=== PATIENT | female | born 1965 | race Caucasian/White ===

== ENCOUNTER → 2021-04-02 | Outpatient (CLI) | payer OTHER ==
[~2021-04-02] MED LIST: CYMB1CAP PO; FERR5MLUD PO; FLEX10TA2 PO; LISI5TAB PO; Lisinopril/HCTZ PO; MAXA10TA20 PO; NEXI1CAP3 PO; OXYC-208 PO; OXYC-274 PO; OXYC1TAB23 PO
--- NOTE | 2021-04-03 13:51 | REP ---
INDICATION: SCREEN MAMMO. COMPARISON: 09/07/2013, 03/09/2012. TECHNIQUE: MLO and CC views bilateral breasts with tomosynthesis. FINDINGS: Scattered fibroglandular tissue is again noted with progressive fatty replacement compared to the prior study. No new breast mass or architectural distortion is seen. No suspicious clusters of microcalcifications are seen. There are calcifications of fat necrosis in the right breast. There is bilateral axillary adenopathy, with multiple enlarged axillary lymph nodes present. Reportedly the patient was diagnosed with leukemia 2 weeks ago. The Volpara volumetric breast density pattern is B. IMPRESSION: BIRADS/ACR category 2, benign mammogram, no suspicious mass or clusters of microcalcifications bilaterally. There is bilateral axillary adenopathy with a known recent diagnosis of leukemia. This patient's Tyrer-Cuzick lifetime breast cancer risk assessment score is 7.2%. This mammogram was interpreted with the aid of an FDA-approved computer-aided detection system. The patient states she had a clinical breast exam in over 1 year ago. The patient letter being requested is M1. RECOMMENDATION: Repeat screening mammography recommended 1 year (for women over 40). <Electronically signed by Jose Juan Paz > 04/03/21 [id number]
== END ==
LOC: M WHC 09:13
PROVIDERS: ATTEND Nurse Practitioner Primary Care
DX: Z12.31 Encounter for screening mammogram for malignant neoplasm of breast (principal)

== ENCOUNTER → 2021-04-18 | Outpatient (CLI) | payer OTHER ==
[~2021-04-18] MED LIST changes: +PROHANCE 279.3MG/ML 15ML VIAL As Ordered ONE
--- NOTE | 2021-04-18 14:50 | REP ---
INDICATION: MALIGNANT NEOPLASM OF BREAST. COMPARISON: Mammogram 04/02/2021. TECHNIQUE: Three Em MRI imaging was performed with a dedicated breast coil. Axial, coronal, and sagittal T1 and T2 weighted scans were obtained with and without fat saturation in the usual fashion. The study includes dynamically acquired post gadolinium-enhanced imaging with image subtraction. Maximum intensity projection and multi planar reformation imaging is included as well. This study is interpreted with the aid of TargetXD, an FDA approved computer aided detection (CAD) software program, on a dedicated breast MRI workstation. The gadolinium enhancement dose is 15 mL of intravenous ProHance. FINDINGS: There is moderate fibroglandular tissue present. No significant cystic change is seen in either breast. There is an area of calcified fat necrosis is at the 12 o'clock position of the right breast. This measures about 2.6 cm in diameter. There is bilateral axillary lymphadenopathy, with multiple enlarged lymph nodes present. Largest on the right measures approximately 2.9 x 2.1 cm and the largest on the left measures approximately 2.6 x 2.2 cm. There is mild background parenchymal enhancement. There is no suspicious enhancing mass or morphologic abnormality. IMPRESSION: BI-RADS category 2, benign breast MRI. No suspicious enhancing mass or morphologic abnormality. There is bilateral axillary adenopathy in this patient with a recent diagnosis of leukemia. <Electronically signed by Jose Juan Paz > 04/18/21 [id number]
== END ==
LOC: M RAD 08:41
PROVIDERS: ATTEND Nurse Practitioner Primary Care
DX: Z12.31 Encounter for screening mammogram for malignant neoplasm of breast (principal)

== ENCOUNTER → 2021-07-31 | Outpatient (CLI) | payer OTHER ==
[~2021-07-31] MED LIST changes: -PROHANCE 279.3MG/ML 15ML VIAL As Ordered ONE
== END ==
LOC: M RAD 08:47
PROVIDERS: ATTEND Internal Medicine Pulmonary Disease
DX: Z87.891 Personal history of nicotine dependence (principal)

== ENCOUNTER → 2021-11-08 | Outpatient (CLI) | payer OTHER | LOC: M WHC 07:46 | PROVIDERS: ATTEND Emergency Medicine | DX: Z12.31 Encounter for screening mammogram for malignant neoplasm of breast (principal) | CPT/HCPCS: 77065; G0279 ==

== ENCOUNTER → 2021-11-29 | Outpatient (CLI) | payer OTHER | LOC: M WUC 09:38 | PROVIDERS: ATTEND Physician Assistant | DX: R07.1 Chest pain on breathing (principal) ==

== ENCOUNTER 2022-01-19 09:02 | Emergency (ER) | payer OTHER ==
[~2022-01-19] VITALS: Ht 162.6 cm; Wt 72.7 kg
[2022-01-19] MEDS ORDERED: oxyCODONE 5MG TAB PO ONE (10:50)
[2022-01-19 11:44] VITALS: BP 109/63
== END 2022-01-19 11:52 | disposition home or self-care (01) ==
LOC: M ED 09:02
DX: S42.001A Fracture of unspecified part of right clavicle, initial encounter for closed fracture (principal); S22.31XA Fracture of one rib, right side, initial encounter for closed fracture; S43.121A Dislocation of right acromioclavicular joint, 100%-200% displacement, initial encounter; W10.8XXA Fall (on) (from) other stairs and steps, initial encounter; J45.909 Unspecified asthma, uncomplicated; I10 Essential (primary) hypertension; E78.5 Hyperlipidemia, unspecified; K21.9 Gastro-esophageal reflux disease without esophagitis; J44.9 Chronic obstructive pulmonary disease, unspecified; Z98.84 Bariatric surgery status; Z88.6 Allergy status to analgesic agent; Y92.009 Unspecified place in unspecified non-institutional (private) residence as the place of occurrence of the external cause; Y93.K1 Activity, walking an animal; Y99.9 Unspecified external cause status; Z79.811 Long term (current) use of aromatase inhibitors; Z79.83 Long term (current) use of bisphosphonates; Z79.899 Other long term (current) drug therapy

== ENCOUNTER 2022-06-29 15:45 | Emergency (ER) | payer OTHER ==
[~2022-06-29] VITALS: Ht 160 cm; Wt 158.0 kg
[2022-06-29] MEDS ORDERED: NS 1,000 ML IV ONE (16:10)
[2022-06-29 16:48] LABS: BASO % 0.2 % (0.0-1.0); EOS % 0.2 % (0.0-3.0); HEMATOCRIT 33.9 % (36.0-47.0); HEMOGLOBIN 11.4 g/dl (12.0-15.5); LYMPH # 0.2 10^3/uL (1.5-5.0); LYMPH % 0.9 % (24.0-44.0); MEAN CORPUSCULAR HEMOGLOBIN 35.1 pg (27.0-33.0); MEAN CORPUSCULAR HGB CONC 33.6 g/dl (32.0-36.5); MEAN CORPUSCULAR VOLUME 104.3 fl (80.0-96.0); MONO # 1.1 10^3/uL (0.0-0.8); MONO % 5.8 % (2.0-8.0); NEUTROPHILS # 17.9 10^3/uL (1.5-8.5); NEUTROPHILS % 92.3 % (36.0-66.0); PLATELET COUNT, AUTOMATED 209 10^3/uL (150-450); RED BLOOD COUNT 3.25 10^6/uL (4.00-5.40); WHITE BLOOD COUNT 19.4 10^3/uL (4.0-10.0)
[2022-06-29] MEDS ORDERED: BEND25VI IV (16:48)
[2022-06-29] MEDS ORDERED: RITU10VI IV (16:48)
[2022-06-29 17:23] LABS: RSV AMPLIFICATION NEGATIVE (NEGATIVE)
[2022-06-29 17:28] LABS: ALBUMIN 3.4 G/DL (3.2-5.2); BILIRUBIN,DIRECT 0.2 MG/DL (<0.4); BILIRUBIN,TOTAL 0.4 MG/DL (0.3-1.2); TOTAL PROTEIN 5.8 G/DL (5.7-8.2)
[2022-06-29 18:08] LABS: BASO % 0.2 % (0.0-1.0); EOS % 0.1 % (0.0-3.0); HEMATOCRIT 30.5 % (36.0-47.0); LYMPH # 0.2 10^3/uL (1.5-5.0); LYMPH % 1.3 % (24.0-44.0); MEAN CORPUSCULAR HEMOGLOBIN 34.6 pg (27.0-33.0); MEAN CORPUSCULAR HGB CONC 32.8 g/dl (32.0-36.5); MEAN CORPUSCULAR VOLUME 105.5 fl (80.0-96.0); MONO # 0.6 10^3/uL (0.0-0.8); MONO % 4.3 % (2.0-8.0); NEUTROPHILS # 12.3 10^3/uL (1.5-8.5); NEUTROPHILS % 93.7 % (36.0-66.0); PLATELET COUNT, AUTOMATED 167 10^3/uL (150-450); RED BLOOD COUNT 2.89 10^6/uL (4.00-5.40); WHITE BLOOD COUNT 13.1 10^3/uL (4.0-10.0)
[2022-06-29] MEDS ORDERED: ONDA4TAB6 PO (18:24)
[2022-06-29 18:30] VITALS: BP 110/60
[2022-06-29] MEDS ORDERED: SODIUM CHLORIDE 0.9% INJ 10 ML SYR IV PRN (18:40)
== END 2022-06-29 19:01 | disposition home or self-care (01) ==
LOC: M ED 15:45 → EDBD 15:45 → M ED 19:01
DX: R11.10 Vomiting, unspecified (principal); R19.7 Diarrhea, unspecified; I10 Essential (primary) hypertension; E78.5 Hyperlipidemia, unspecified; J44.9 Chronic obstructive pulmonary disease, unspecified; F10.10 Alcohol abuse, uncomplicated; Z88.6 Allergy status to analgesic agent; Z79.811 Long term (current) use of aromatase inhibitors; Z79.899 Other long term (current) drug therapy
CPT/HCPCS: 80047; 80076; 82150; 83605; 83690; 85025; 87040; 87631; 93041; 96374; 99284; J1642

== ENCOUNTER → 2022-11-05 | Outpatient (CLI) | payer OTHER ==
[~2022-11-05] MED LIST changes: +BEND25VI IV; +ONDA4TAB6 PO; +RITU10VI IV
== END ==
LOC: M RAD 14:05
PROVIDERS: ATTEND Internal Medicine Pulmonary Disease
DX: R91.8 Other nonspecific abnormal finding of lung field (principal); Z87.891 Personal history of nicotine dependence

== ENCOUNTER → 2022-12-04 | Outpatient (CLI) | payer OTHER | LOC: M WHC 12:33 | PROVIDERS: ATTEND Nurse Practitioner Primary Care | DX: Z12.31 Encounter for screening mammogram for malignant neoplasm of breast (principal) ==

== ENCOUNTER 2023-01-14 08:52 | Emergency (ER) | payer OTHER ==
[~2023-01-14] VITALS: Ht 160 cm; Wt 67.3 kg
[2023-01-14 09:05] VITALS: TEMP 96.9
[2023-01-14 09:29] LABS: BASO % 0.2 % (0.0-1.0); EOS % 0.4 % (0.0-3.0); HEMATOCRIT 28.3 % (36.0-47.0); HEMOGLOBIN 9.7 g/dl (12.0-15.5); LYMPH # 0.2 10^3/uL (1.5-5.0); LYMPH % 3.7 % (24.0-44.0); MEAN CORPUSCULAR HEMOGLOBIN 34.4 pg (27.0-33.0); MEAN CORPUSCULAR HGB CONC 34.3 g/dl (32.0-36.5); MEAN CORPUSCULAR VOLUME 100.4 fl (80.0-96.0); MONO # 0.2 10^3/uL (0.0-0.8); MONO % 4.5 % (2.0-8.0); NEUTROPHILS # 4.2 10^3/uL (1.5-8.5); NEUTROPHILS % 89.7 % (36.0-66.0); PLATELET COUNT, AUTOMATED 167 10^3/uL (150-450); RED BLOOD COUNT 2.82 10^6/uL (4.00-5.40); WHITE BLOOD COUNT 4.6 10^3/uL (4.0-10.0)
[2023-01-14] MEDS ORDERED: NS 500 ML IV ONE ×2 (09:45→11:05)
[2023-01-14 10:02] LABS: BLOOD UREA NITROGEN < 5 MG/DL (9-23); CALCIUM LEVEL 8.2 MG/DL (8.5-10.1); CARBON DIOXIDE LEVEL 26 MMOL/L (20-31); CHLORIDE LEVEL 99 MMOL/L (98-107); CREATININE FOR GFR 1.02 MG/DL (0.55-1.30); FREE T4 0.86 NG/DL (0.89-1.76); GLOMERULAR FILTRATION RATE 59.9 (>51); GLUCOSE, FASTING 93 MG/DL (60-100); MAGNESIUM LEVEL 1.8 MG/DL (1.8-2.4); POTASSIUM SERUM 3.8 MMOL/L (3.5-5.1); SODIUM LEVEL 135 MMOL/L (136-145); THYROID STIMULATING HORMONE 1.939 uIU/ML (0.55-4.78)
[2023-01-14 11:30] VITALS: BP 159/88
[2023-01-14 11:37] VITALS: O2SAT 99
[2023-01-14 12:03] LABS: IRON (FE) 120 UG/DL (50-170); PERCENT SATURATION 64.9 % (13.2-45.0); TOTAL IRON BINDING CAPACITY 185 UG/DL (250-425)
[2023-01-14 12:05] LABS: FERRITIN 194.9 NG/ML (7.3-270.7); FOLATE > 24.00 NG/ML (>5.4); VITAMIN B12 LEVEL 1586 PG/ML (211-911)
== END 2023-01-14 12:09 | disposition home or self-care (01) ==
LOC: M ED 08:52 → EDBD 08:52 → M ED 12:09
DX: R42 Dizziness and giddiness (principal); C95.91 Leukemia, unspecified, in remission; D63.8 Anemia in other chronic diseases classified elsewhere; I10 Essential (primary) hypertension; K21.9 Gastro-esophageal reflux disease without esophagitis; M54.50 Low back pain, unspecified; J45.909 Unspecified asthma, uncomplicated; Z88.6 Allergy status to analgesic agent; Z79.811 Long term (current) use of aromatase inhibitors; Z79.899 Other long term (current) drug therapy

== ENCOUNTER 2023-07-14 11:07 | Inpatient (IN) | payer OTHER ==
[~2023-07-14] VITALS: Ht 160 cm; Wt 57.9 kg
[2023-07-14 15:31] LABS: HEMATOCRIT 28.5 % (36.0-47.0); HEMOGLOBIN 9.9 g/dl (12.0-15.5); MEAN CORPUSCULAR HEMOGLOBIN 38.2 pg (27.0-33.0); MEAN CORPUSCULAR HGB CONC 34.7 g/dl (32.0-36.5); PLATELET COUNT, AUTOMATED 112 10^3/uL (150-450); RED BLOOD COUNT 2.59 10^6/uL (4.00-5.40); WHITE BLOOD COUNT 6.5 10^3/uL (4.0-10.0)
[2023-07-14 15:53] LABS: LYMPHOCYTES 1 % (16-44); METAMYELOCYTES 1 % (0-0); MONOCYTES 4 % (0-5); NEUTROPHILS 84 % (28-66)
[2023-07-14 15:54] LABS: PLATELET ESTIMATE DECREASED (NORMAL)
[2023-07-14 16:04] LABS: BLOOD UREA NITROGEN 11 MG/DL (9-23); CARBON DIOXIDE LEVEL 32 MMOL/L (20-31); CHLORIDE LEVEL 92 MMOL/L (98-107); CREATININE FOR GFR 0.94 MG/DL (0.55-1.30); GLOMERULAR FILTRATION RATE > 60.0 (>51); GLUCOSE, FASTING 97 MG/DL (60-100); SODIUM LEVEL 129 MMOL/L (136-145)
[2023-07-14 16:13] LABS: INR 1.06; PARTIAL THROMBOPLASTIN TIME 28.8 SECONDS (24.8-34.2); PROTHROMBIN TIME 13.5 SECONDS (12.5-14.5)
[2023-07-14 16:27] LABS: LIPASE 16 U/L (12-53)
[2023-07-14 16:29] LABS: ALBUMIN 1.6 G/DL (3.2-5.2); ALKALINE PHOSPHATASE 252 U/L (46-116); ALT/SGPT 45 U/L (7.0-40); AST/SGOT 91 U/L (<34); BILIRUBIN,DIRECT 0.5 MG/DL (<0.4); BILIRUBIN,TOTAL 0.8 MG/DL (0.3-1.2); CK-MB VALUE MASS 1.6 NG/ML (<3.6); TOTAL PROTEIN 4.1 G/DL (5.7-8.2)
[2023-07-14] MEDS: NS 500 ML IV ONE (16:36)
[2023-07-14 16:41] LABS: AMYLASE < 20 U/L (30-118); CPK CREATINE PHOSPHOKINASE 90 U/L (34-145); MB/CK RELATIVE INDEX 1.77 (< OR =4); PROCALCITONIN 9.55 ng/ml
[2023-07-14] MEDS ORDERED: SODIUM CHLORIDE 0.9% INJ 10 ML SYR IV PRN (17:50)
[2023-07-14] MEDS ORDERED: ISOVUE-370 76% 100ML VIAL As Ordered ONE (18:14)
[2023-07-14 18:38] LABS: RSV AMPLIFICATION NEGATIVE (NEGATIVE)
[2023-07-14 20:23] LABS: CK-MB VALUE MASS 1.5 NG/ML (<3.6)
[2023-07-14 20:24] LABS: CPK CREATINE PHOSPHOKINASE 72 U/L (34-145); CREATININE FOR GFR 0.94 MG/DL (0.55-1.30); GLOMERULAR FILTRATION RATE > 60.0 (>51); MB/CK RELATIVE INDEX 2.08 (< OR =4)
[2023-07-14] MEDS ORDERED: ENOXAPARIN 100MG/1ML SYRINGE (J1650 PER 10MG) SC SCH (22:45)
[2023-07-14] MEDS ORDERED: LORazepam 2 MG TAB PO PRN (23:15)
[2023-07-14] MEDS: LIDOCAINE 2% 5ML JELLY UROJET TOP ONE ×2 (23:22→23:24)
[2023-07-14 23:29] LABS: VITAMIN B12 LEVEL > 2000 PG/ML (211-911)
[2023-07-15] MEDS: NS 1,000 ML IV SCH (00:11)
[2023-07-15] MEDS ORDERED: POTA-150 PO (00:15)
[2023-07-15] MEDS ORDERED: GABA-282 PO (00:15)
[2023-07-15] MEDS ORDERED: DULO20CA27 PO (00:15)
[2023-07-15] MEDS ORDERED: FURO20TA2 PO (00:15)
[2023-07-15] MEDS ORDERED: OXYC7.5T3 PO (00:15)
[2023-07-15] MEDS ORDERED: FLON1SPR NARES (00:15)
[2023-07-15] MEDS ORDERED: RIZA10TA66 PO (00:15)
[2023-07-15] MEDS ORDERED: VITA100093 PO (00:15)
[2023-07-15] MEDS ORDERED: EQL0.65S NARES (00:15)
[2023-07-15] MEDS ORDERED: ONDA-84 PO (00:15)
[2023-07-15] MEDS ORDERED: FERR325T18 PO (00:15)
[2023-07-15] MEDS ORDERED: SIMV10TA21 PO (00:15)
[2023-07-15] MEDS ORDERED: LIDO1PAD TOP (00:15)
[2023-07-15] MEDS ORDERED: TOLT4CAP3 PO (00:15)
[2023-07-15] MEDS ORDERED: HOME MED LIST COMPLETE! XX SCH (00:20)
[2023-07-15] MEDS: OSELTAMIVIR PHOSPHATE 75 MG CAP (TAMIFLU) PO ONE (00:26)
[2023-07-15] MEDS: ENOXAPARIN 100MG/1ML SYRINGE (J1650 PER 10MG) SC ONE (00:26)
[2023-07-15] MEDS: THIAMINE 100 MG TAB PO SCH (00:26)
[2023-07-15] MEDS: PIPERACILLIN/TAZOBACTAM SOD 4.5 GM in D5W MINI-BAG PLUS 50 ML IV ONE (00:34)
[2023-07-15] MEDS: APIXABAN 5 MG TAB (ELIQUIS) PO SCH (01:54)
[2023-07-15 06:24] LABS: HEMATOCRIT 24.4 % (36.0-47.0); HEMOGLOBIN 8.5 g/dl (12.0-15.5); MEAN CORPUSCULAR HEMOGLOBIN 38.1 pg (27.0-33.0); MEAN CORPUSCULAR HGB CONC 34.8 g/dl (32.0-36.5); MEAN CORPUSCULAR VOLUME 109.4 fl (80.0-96.0); RED BLOOD COUNT 2.23 10^6/uL (4.00-5.40); WHITE BLOOD COUNT 5.3 10^3/uL (4.0-10.0)
[2023-07-15 06:41] LABS: FOLATE 7.36 NG/ML (>5.4)
[2023-07-15 06:45] LABS: VITAMIN B12 LEVEL > 2000 PG/ML (211-911)
[2023-07-15 07:06] LABS: PLATELET COUNT, AUTOMATED 98 10^3/uL (150-450)
[2023-07-15] MEDS ORDERED: cefTRIAXone SOD 1 GM in D5W MINI-BAG PLUS 50 ML IV SCH (07:30)
[2023-07-15] MEDS: POTASSIUM CHLORIDE 10MEQ SR TABLET PO SCH (08:10)
[2023-07-15] MEDS: VITAMIN D 1,000 INTERNATIONAL UNITS TABLET PO SCH (08:12)
[2023-07-15] MEDS: AZITHROMYCIN 250MG TABLET PO SCH (08:12)
[2023-07-15] MEDS: FOLIC ACID 1MG TAB PO SCH (08:12)
[2023-07-15] MEDS: PIPERACILLIN/TAZOBACTAM SOD 3.375 GM in D5W MINI-BAG PLUS 50 ML IV SCH (08:13)
[2023-07-15] MEDS: DULoxetine 20MG CAP (CYMBALTA) PO SCH (08:13)
[2023-07-15] MEDS: FERROUS SULFATE 325MG TAB PO SCH (08:13)
[2023-07-15] MEDS: MULTIVITAMINS/MINERALS THERAP 1 TAB PO SCH (08:13)
[2023-07-15 08:45] LABS: ALBUMIN 1.3 G/DL (3.2-5.2); ALKALINE PHOSPHATASE 225 U/L (46-116); ALT/SGPT 37 U/L (7.0-40); AST/SGOT 78 U/L (<34); BLOOD UREA NITROGEN 9 MG/DL (9-23); CALCIUM LEVEL 6.9 MG/DL (8.5-10.1); CARBON DIOXIDE LEVEL 30 MMOL/L (20-31); CHLORIDE LEVEL 95 MMOL/L (98-107); CREATININE FOR GFR 0.88 MG/DL (0.55-1.30); GLOMERULAR FILTRATION RATE > 60.0 (>51); GLUCOSE, FASTING 101 MG/DL (60-100); POTASSIUM SERUM 2.9 MMOL/L (3.5-5.1); SODIUM LEVEL 130 MMOL/L (136-145); TOTAL PROTEIN 3.5 G/DL (5.7-8.2)
[2023-07-15] MEDS ORDERED: SODIUM CHLORIDE 0.9% INJ 10 ML SYR IV SCH (09:00)
[2023-07-15 11:53] LABS: MAGNESIUM LEVEL 1.5 MG/DL (1.8-2.4)
[2023-07-15] MEDS: KCL 10MEQ/100ML SWI (KRUN) 10 MEQ in IV 1 EA IV SCH (11:55)
[2023-07-15] MEDS: POTASSIUM CHLORIDE 10MEQ SR TABLET PO ONE (11:56)
[2023-07-15 13:11] LABS: IMMUNOGLOBULIN G 594 MG/DL (650-1600); IRON (FE) 47 UG/DL (50-170); PERCENT SATURATION 35.3 % (13.2-45.0); THYROID STIMULATING HORMONE 0.725 uIU/ML (0.55-4.78); TOTAL IRON BINDING CAPACITY 133 UG/DL (250-425)
[2023-07-15] MEDS: ENOXAPARIN 60MG/0.6ML SYRINGE (J1650 PER 10MG) SC SCH (17:08)
[2023-07-15] MEDS: MAG SULF 1GM/100ML (MAG RUN) 1 GM in IV 1 EA IV SCH ×2 (17:09→18:44)
[2023-07-15 17:15] VITALS: BP 132/74; TEMP 97.7; O2SAT 100
[2023-07-15 19:51] VITALS: BP 128/70; TEMP 97.8; O2SAT 100
[2023-07-15 20:00] VITALS: BP 128/70
[2023-07-15] MEDS: TOLTERODINE TARTRATE 2 MG LA CAP (DETROL LA) PO SCH (21:53)
[2023-07-15] MEDS: SIMVASTATIN 10 MG TAB PO SCH (21:55)
[2023-07-15] MEDS: GABAPENTIN 300 MG CAP PO SCH (21:55)
[2023-07-15 23:29] VITALS: BP_SYST 100; BP_SYST 70; BP_SYST 88; BP_DIAS 52; BP_DIAS 61; BP_DIAS 66
[2023-07-16] VITALS (7 sets, daily range): BP systolic 99–122; BP diastolic 60–84; TEMP 97.1–98.6; O2SAT 94–100
[2023-07-16 05:37] LABS: BASO % 0.7 % (0.0-1.0); EOS % 0.2 % (0.0-3.0); HEMATOCRIT 24.3 % (36.0-47.0); HEMOGLOBIN 8.2 g/dl (12.0-15.5); LYMPH # 0.5 10^3/uL (1.5-5.0); LYMPH % 9.6 % (24.0-44.0); MEAN CORPUSCULAR HEMOGLOBIN 37.8 pg (27.0-33.0); MEAN CORPUSCULAR HGB CONC 33.7 g/dl (32.0-36.5); MONO # 0.3 10^3/uL (0.0-0.8); NEUTROPHILS # 4.1 10^3/uL (1.5-8.5); NEUTROPHILS % 76.6 % (36.0-66.0); RED BLOOD COUNT 2.17 10^6/uL (4.00-5.40); WHITE BLOOD COUNT 5.3 10^3/uL (4.0-10.0)
[2023-07-16 05:48] LABS: PLATELET COUNT, AUTOMATED 86 10^3/uL (150-450)
[2023-07-16 06:09] LABS: PROCALCITONIN 4.23 ng/ml
[2023-07-16 06:10] LABS: BLOOD UREA NITROGEN 10 MG/DL (9-23); CALCIUM LEVEL 6.6 MG/DL (8.5-10.1); CARBON DIOXIDE LEVEL 31 MMOL/L (20-31); CHLORIDE LEVEL 100 MMOL/L (98-107); CREATININE FOR GFR 0.95 MG/DL (0.55-1.30); GLOMERULAR FILTRATION RATE > 60.0 (>51); GLUCOSE, FASTING 86 MG/DL (60-100); POTASSIUM SERUM 3.8 MMOL/L (3.5-5.1); SODIUM LEVEL 134 MMOL/L (136-145)
[2023-07-16] MEDS: LIDOCAINE 5% (LIDODERM) PATCH TOP PRN (17:17)
[2023-07-17] VITALS (12 sets, daily range): BP systolic 96–137; BP diastolic 64–86; TEMP 97.4–98.9; O2SAT 91–99
[2023-07-17 06:07] LABS: HEMATOCRIT 22.9 % (36.0-47.0); HEMOGLOBIN 7.5 g/dl (12.0-15.5); MEAN CORPUSCULAR HEMOGLOBIN 37.5 pg (27.0-33.0); MEAN CORPUSCULAR HGB CONC 32.8 g/dl (32.0-36.5); WHITE BLOOD COUNT 3.3 10^3/uL (4.0-10.0)
[2023-07-17 06:14] LABS: PLATELET COUNT, AUTOMATED 76 10^3/uL (150-450)
[2023-07-17 06:15] LABS: MEAN CORPUSCULAR VOLUME 114.5 fl (80.0-96.0)
[2023-07-17 06:37] LABS: ALBUMIN 1.2 G/DL (3.2-5.2); ALKALINE PHOSPHATASE 203 U/L (46-116); ALT/SGPT 33 U/L (7.0-40); AST/SGOT 56 U/L (<34); BILIRUBIN,DIRECT 0.4 MG/DL (<0.4); BILIRUBIN,TOTAL 0.5 MG/DL (0.3-1.2); BLOOD UREA NITROGEN 10 MG/DL (9-23); CALCIUM LEVEL 6.6 MG/DL (8.5-10.1); CARBON DIOXIDE LEVEL 26 MMOL/L (20-31); CHLORIDE LEVEL 104 MMOL/L (98-107); CREATININE FOR GFR 0.99 MG/DL (0.55-1.30); GLOMERULAR FILTRATION RATE > 60.0 (>51); GLUCOSE, FASTING 79 MG/DL (60-100); POTASSIUM SERUM 4.5 MMOL/L (3.5-5.1); SODIUM LEVEL 136 MMOL/L (136-145); TOTAL PROTEIN 3.3 G/DL (5.7-8.2)
[2023-07-17 07:46] LABS: PLATELET COUNT, AUTOMATED 89 10^3/uL (150-450)
[2023-07-17 08:01] LABS: D-DIMER QUANT 0.99 ug/mL (<0.5); INR 1.08; PARTIAL THROMBOPLASTIN TIME 42.2 SECONDS (24.8-34.2); PROTHROMBIN TIME 13.7 SECONDS (12.5-14.5)
[2023-07-17] MEDS: PANTOPRAZOLE 40MG VIAL IV ONE (08:42)
[2023-07-17 10:11] LABS: ATYPICAL LYMPH 20 % (0-5); EOSINOPHILS 1 % (0-3); LYMPHOCYTES 9 % (16-44); MONOCYTES 7 % (0-5); NEUTROPHILS 63 % (28-66)
[2023-07-17 10:12] LABS: PLATELET ESTIMATE DECREASED (NORMAL)
[2023-07-17 10:13] LABS: POLYCHROMASIA 1+
[2023-07-17 13:48] LABS: MEAN CORPUSCULAR HEMOGLOBIN 37.5 pg (27.0-33.0); MEAN CORPUSCULAR HGB CONC 33.3 g/dl (32.0-36.5); MEAN CORPUSCULAR VOLUME 112.5 fl (80.0-96.0); RED BLOOD COUNT 1.76 10^6/uL (4.00-5.40); WHITE BLOOD COUNT 3.2 10^3/uL (4.0-10.0)
[2023-07-17 13:54] LABS: HEMATOCRIT 19.8 % (36.0-47.0); HEMOGLOBIN 6.6 g/dl (12.0-15.5); PLATELET COUNT, AUTOMATED 88 10^3/uL (150-450)
[2023-07-17] MEDS ORDERED: LR 1,000 ML IV SCH (16:10)
[2023-07-17] MEDS: PANTOPRAZOLE 40MG VIAL IV SCH (21:16)
[2023-07-17] MEDS: ACETAMINOPHEN TAB 650MG DOSE (2X325MG) PO ONE (21:17)
[2023-07-18] VITALS (7 sets, daily range): BP systolic 115–146; BP diastolic 62–97; TEMP 96.6–98.6; O2SAT 91–97
[2023-07-18 00:26] LABS: HEMOGLOBIN 10.8 g/dl (12.0-15.5); MEAN CORPUSCULAR HEMOGLOBIN 33.8 pg (27.0-33.0); MEAN CORPUSCULAR HGB CONC 34.8 g/dl (32.0-36.5); MEAN CORPUSCULAR VOLUME 96.9 fl (80.0-96.0); WHITE BLOOD COUNT 4.1 10^3/uL (4.0-10.0)
[2023-07-18 00:31] LABS: PLATELET COUNT, AUTOMATED 74 10^3/uL (150-450)
[2023-07-18 04:50] LABS: BASO % 0.9 % (0.0-1.0); EOS % 0.3 % (0.0-3.0); HEMATOCRIT 30.5 % (36.0-47.0); HEMOGLOBIN 10.4 g/dl (12.0-15.5); LYMPH # 0.4 10^3/uL (1.5-5.0); LYMPH % 12.8 % (24.0-44.0); MEAN CORPUSCULAR HEMOGLOBIN 33.3 pg (27.0-33.0); MEAN CORPUSCULAR HGB CONC 34.1 g/dl (32.0-36.5); MEAN CORPUSCULAR VOLUME 97.8 fl (80.0-96.0); MONO # 0.2 10^3/uL (0.0-0.8); MONO % 6.1 % (2.0-8.0); NEUTROPHILS # 2.3 10^3/uL (1.5-8.5); NEUTROPHILS % 68.9 % (36.0-66.0); RED BLOOD COUNT 3.12 10^6/uL (4.00-5.40); WHITE BLOOD COUNT 3.3 10^3/uL (4.0-10.0)
[2023-07-18 04:54] LABS: PLATELET COUNT, AUTOMATED 71 10^3/uL (150-450)
[2023-07-18 05:21] LABS: BLOOD UREA NITROGEN 12 MG/DL (9-23); CALCIUM LEVEL 6.6 MG/DL (8.5-10.1); CARBON DIOXIDE LEVEL 28 MMOL/L (20-31); CHLORIDE LEVEL 107 MMOL/L (98-107); GLOMERULAR FILTRATION RATE > 60.0 (>51); GLUCOSE, FASTING 80 MG/DL (60-100); POTASSIUM SERUM 4.2 MMOL/L (3.5-5.1); SODIUM LEVEL 137 MMOL/L (136-145)
[2023-07-18 05:50] LABS: HEMATOCRIT 30.6 % (36.0-47.0); HEMOGLOBIN 10.6 g/dl (12.0-15.5); MEAN CORPUSCULAR HEMOGLOBIN 33.9 pg (27.0-33.0); MEAN CORPUSCULAR HGB CONC 34.6 g/dl (32.0-36.5); MEAN CORPUSCULAR VOLUME 97.8 fl (80.0-96.0); RED BLOOD COUNT 3.13 10^6/uL (4.00-5.40); WHITE BLOOD COUNT 3.3 10^3/uL (4.0-10.0)
[2023-07-18 05:52] LABS: PLATELET COUNT, AUTOMATED 70 10^3/uL (150-450)
[2023-07-18 09:11] LABS: BASO % 0.3 % (0.0-1.0); LYMPH # 0.3 10^3/uL (1.5-5.0); LYMPH % 8.6 % (24.0-44.0); MONO # 0.2 10^3/uL (0.0-0.8); MONO % 4.8 % (2.0-8.0); NEUTROPHILS % 76.9 % (36.0-66.0)
[2023-07-18 11:58] LABS: CLOSTRIDIUM DIFFICILE PCR NEGATIVE (NEGATIVE)
[2023-07-18] MEDS: oxyCODONE 5MG TAB PO PRN (13:57)
[2023-07-18 15:28] LABS: HEMATOCRIT 30.4 % (36.0-47.0); HEMOGLOBIN 10.6 g/dl (12.0-15.5); MEAN CORPUSCULAR HEMOGLOBIN 34.3 pg (27.0-33.0); MEAN CORPUSCULAR HGB CONC 34.9 g/dl (32.0-36.5); MEAN CORPUSCULAR VOLUME 98.4 fl (80.0-96.0); RED BLOOD COUNT 3.09 10^6/uL (4.00-5.40); WHITE BLOOD COUNT 3.3 10^3/uL (4.0-10.0)
[2023-07-18 15:35] LABS: PLATELET COUNT, AUTOMATED 68 10^3/uL (150-450)
[2023-07-18] MEDS: CYCLOBENZAPRINE 5MG TABLET PO SCH (16:00)
[2023-07-18 17:45] LABS: PROCALCITONIN 11.73 ng/ml
[2023-07-18 18:04] LABS: ERYTHROCYTE SEDIMENTATION RATE < 1 mm/hr (0-30)
[2023-07-18] MEDS: LR 1,000 ML IV SCH (19:31)
[2023-07-18 19:34] LABS: LIPASE 21 U/L (12-53)
[2023-07-18] MEDS: PINK BISMUTH SUSP 524MG/30ML ORAL SYRINGE PO SCH (20:22)
[2023-07-18 21:06] LABS: HEMATOCRIT 35.3 % (36.0-47.0); RED BLOOD COUNT 3.53 10^6/uL (4.00-5.40); WHITE BLOOD COUNT 3.9 10^3/uL (4.0-10.0)
[2023-07-18 21:12] LABS: PLATELET COUNT, AUTOMATED 77 10^3/uL (150-450)
[2023-07-19] VITALS (7 sets, daily range): BP systolic 119–139; BP diastolic 72–89; TEMP 96.9–97.4; O2SAT 92–99
[2023-07-19 05:11] LABS: BASO % 0.7 % (0.0-1.0); EOS % 0.5 % (0.0-3.0); HEMATOCRIT 36.9 % (36.0-47.0); HEMOGLOBIN 12.5 g/dl (12.0-15.5); LYMPH # 0.7 10^3/uL (1.5-5.0); LYMPH % 16.7 % (24.0-44.0); MEAN CORPUSCULAR HEMOGLOBIN 33.3 pg (27.0-33.0); MEAN CORPUSCULAR HGB CONC 33.9 g/dl (32.0-36.5); MEAN CORPUSCULAR VOLUME 98.4 fl (80.0-96.0); MONO # 0.3 10^3/uL (0.0-0.8); MONO % 6.3 % (2.0-8.0); NEUTROPHILS # 2.8 10^3/uL (1.5-8.5); NEUTROPHILS % 64.8 % (36.0-66.0); PLATELET COUNT, AUTOMATED 100 10^3/uL (150-450); RED BLOOD COUNT 3.75 10^6/uL (4.00-5.40); WHITE BLOOD COUNT 4.3 10^3/uL (4.0-10.0)
[2023-07-19 05:29] LABS: BLOOD UREA NITROGEN 12 MG/DL (9-23); CALCIUM LEVEL 6.9 MG/DL (8.5-10.1); CARBON DIOXIDE LEVEL 26 MMOL/L (20-31); CHLORIDE LEVEL 107 MMOL/L (98-107); CREATININE FOR GFR 0.95 MG/DL (0.55-1.30); GLOMERULAR FILTRATION RATE > 60.0 (>51); GLUCOSE, FASTING 75 MG/DL (60-100); POTASSIUM SERUM 4.1 MMOL/L (3.5-5.1); SODIUM LEVEL 139 MMOL/L (136-145)
[2023-07-19] MEDS: BENZONATATE 100MG CAPSULE PO PRN (17:02)
[2023-07-19] MEDS: ENOXAPARIN 30MG/0.3ML SYRINGE (J1650 PER 10MG) SC ONE (18:30)
[2023-07-20 03:12] VITALS: BP 129/80; TEMP 97.2; O2SAT 93
[2023-07-20 05:56] LABS: MEAN CORPUSCULAR HEMOGLOBIN 33.3 pg (27.0-33.0); MEAN CORPUSCULAR HGB CONC 33.2 g/dl (32.0-36.5); MEAN CORPUSCULAR VOLUME 100.3 fl (80.0-96.0); RED BLOOD COUNT 3.09 10^6/uL (4.00-5.40); WHITE BLOOD COUNT 3.1 10^3/uL (4.0-10.0)
[2023-07-20 06:01] LABS: PLATELET COUNT, AUTOMATED 94 10^3/uL (150-450)
[2023-07-20 06:07] LABS: HEMOGLOBIN 10.3 g/dl (12.0-15.5)
[2023-07-20 06:17] LABS: BLOOD UREA NITROGEN 12 MG/DL (9-23); CALCIUM LEVEL 6.7 MG/DL (8.5-10.1); CARBON DIOXIDE LEVEL 25 MMOL/L (20-31); CHLORIDE LEVEL 110 MMOL/L (98-107); CREATININE FOR GFR 0.87 MG/DL (0.55-1.30); GLOMERULAR FILTRATION RATE > 60.0 (>51); GLUCOSE, FASTING 77 MG/DL (60-100); SODIUM LEVEL 141 MMOL/L (136-145)
[2023-07-20 06:24] LABS: PROCALCITONIN >50.00 ng/ml
[2023-07-20 06:45] LABS: ATYPICAL LYMPH 3 % (0-5); BASOPHILS 1 % (0-1); EOSINOPHILS 2 % (0-3); LYMPHOCYTES 8 % (16-44); METAMYELOCYTES 1 % (0-0); MONOCYTES 6 % (0-5); MYELOCYTES 1 % (0-0); NEUTROPHILS 78 % (28-66)
[2023-07-20 06:46] LABS: ANISOCYTOSIS 2+; POIKILOCYTOSIS 1+
[2023-07-20 06:47] LABS: POLYCHROMASIA 1+
[2023-07-20 06:49] LABS: PLATELET ESTIMATE DECREASED (NORMAL)
[2023-07-20 08:08] VITALS: BP 139/96; TEMP 97.1; O2SAT 92
[2023-07-20] MEDS: FUROSEMIDE 40MG/4ML VIAL IV SCH (09:19)
[2023-07-20] MEDS: ENOXAPARIN 60MG/0.6ML SYRINGE (J1650 PER 10MG) SC SCH (11:29)
[2023-07-20 12:02] VITALS: BP 130/86; TEMP 98.6; O2SAT 94
[2023-07-20 16:23] VITALS: BP 115/84; TEMP 97.7; O2SAT 98
[2023-07-20] MEDS: ALBUTEROL 90 MCG/ACT 8GM HFA INHALER INH PRN (19:07)
[2023-07-20 19:30] VITALS: BP 115/75; TEMP 97.2; O2SAT 93
[2023-07-20] MEDS: FUROSEMIDE 100MG/10ML VIAL IV ONE (22:09)
[2023-07-20 22:10] VITALS: BP 120/74
[2023-07-21 00:58] VITALS: BP 109/72; TEMP 97; O2SAT 96
[2023-07-21 03:19] VITALS: BP 120/75; TEMP 97.1; O2SAT 93
[2023-07-21 05:35] LABS: BASO % 0.7 % (0.0-1.0); EOS # 0.1 10^3/uL (0.0-0.5); EOS % 1.7 % (0.0-3.0); HEMATOCRIT 31.5 % (36.0-47.0); HEMOGLOBIN 10.6 g/dl (12.0-15.5); LYMPH # 0.6 10^3/uL (1.5-5.0); LYMPH % 20.1 % (24.0-44.0); MEAN CORPUSCULAR HEMOGLOBIN 33.7 pg (27.0-33.0); MEAN CORPUSCULAR HGB CONC 33.7 g/dl (32.0-36.5); MONO # 0.2 10^3/uL (0.0-0.8); MONO % 6.4 % (2.0-8.0); NEUTROPHILS # 1.8 10^3/uL (1.5-8.5); NEUTROPHILS % 58.7 % (36.0-66.0); RED BLOOD COUNT 3.15 10^6/uL (4.00-5.40)
[2023-07-21 05:38] LABS: PLATELET COUNT, AUTOMATED 113 10^3/uL (150-450)
[2023-07-21 05:56] LABS: BLOOD UREA NITROGEN 10 MG/DL (9-23); CALCIUM LEVEL 6.6 MG/DL (8.5-10.1); CARBON DIOXIDE LEVEL 29 MMOL/L (20-31); CHLORIDE LEVEL 105 MMOL/L (98-107); CREATININE FOR GFR 0.94 MG/DL (0.55-1.30); GLOMERULAR FILTRATION RATE > 60.0 (>51); GLUCOSE, FASTING 81 MG/DL (60-100); POTASSIUM SERUM 3.1 MMOL/L (3.5-5.1); SODIUM LEVEL 140 MMOL/L (136-145)
[2023-07-21 07:16] VITALS: BP_SYST 117; BP_SYST 196; BP_DIAS 110; BP_DIAS 80; TEMP 97; TEMP 97.9; O2SAT 92; O2SAT 93
[2023-07-21] MEDS: oxyCODONE 5MG TAB PO PRN (09:53)
[2023-07-21] MEDS: POTASSIUM CHLORIDE 10MEQ SR TABLET PO SCH (09:55)
[2023-07-21 11:18] VITALS: BP 129/87; TEMP 97.8; O2SAT 96
[2023-07-21] MEDS: RIVAROXABAN 15MG TAB (XARELTO) PO SCH (11:43)
[2023-07-21 15:00] VITALS: BP 135/89; TEMP 97.7; O2SAT 97
[2023-07-21] MEDS: AUGMENTIN 875 MG TAB PO SCH (21:05)
[2023-07-21 21:09] VITALS: BP 154/98; TEMP 97.9; O2SAT 91
[2023-07-22 06:14] VITALS: BP 132/84; TEMP 97.9; O2SAT 90
[2023-07-22 06:15] LABS: BASO % 0.8 % (0.0-1.0); EOS # 0.1 10^3/uL (0.0-0.5); EOS % 2.4 % (0.0-3.0); HEMATOCRIT 30.2 % (36.0-47.0); HEMOGLOBIN 10.1 g/dl (12.0-15.5); LYMPH # 0.6 10^3/uL (1.5-5.0); LYMPH % 24.5 % (24.0-44.0); MEAN CORPUSCULAR HEMOGLOBIN 33.7 pg (27.0-33.0); MEAN CORPUSCULAR HGB CONC 33.4 g/dl (32.0-36.5); MEAN CORPUSCULAR VOLUME 100.7 fl (80.0-96.0); MONO # 0.2 10^3/uL (0.0-0.8); NEUTROPHILS # 1.3 10^3/uL (1.5-8.5); NEUTROPHILS % 51.1 % (36.0-66.0); PLATELET COUNT, AUTOMATED 130 10^3/uL (150-450); WHITE BLOOD COUNT 2.5 10^3/uL (4.0-10.0)
[2023-07-22 06:38] LABS: BLOOD UREA NITROGEN 10 MG/DL (9-23); CALCIUM LEVEL 6.7 MG/DL (8.5-10.1); CARBON DIOXIDE LEVEL 30 MMOL/L (20-31); CHLORIDE LEVEL 106 MMOL/L (98-107); CREATININE FOR GFR 0.89 MG/DL (0.55-1.30); GLOMERULAR FILTRATION RATE > 60.0 (>51); GLUCOSE, FASTING 74 MG/DL (60-100); POTASSIUM SERUM 3.7 MMOL/L (3.5-5.1); SODIUM LEVEL 141 MMOL/L (136-145)
[2023-07-22 06:43] LABS: PROCALCITONIN 11.27 ng/ml
[2023-07-22] MEDS ORDERED: XARE1TAB PO (07:23)
[2023-07-22] MEDS ORDERED: BENZ-18 PO (09:54)
[2023-07-22] MEDS ORDERED: AMOX875T2 PO (09:54)
== END 2023-07-22 11:08 | disposition home or self-care (01) | DRG 175 ==
LOC: M ED 11:07 → M ED INP 21:26 → ENRESERV 07-15 15:37 → M PCU 07-15 17:21 → M MSPAV 07-21 14:57
PROVIDERS: ADMIT Internal Medicine; ATTEND Student in an Organized Health Care Education/Training Program
PROC: 30233N1 Transfusion of Nonautologous Red Blood Cells into Peripheral Vein, Percutaneous Approach (ICD-10-PCS; principal; 2023-07-17)
DX: I26.99 Other pulmonary embolism without acute cor pulmonale (principal); J10.01 Influenza due to other identified influenza virus with the same other identified influenza virus pneumonia; I82.412 Acute embolism and thrombosis of left femoral vein; I82.432 Acute embolism and thrombosis of left popliteal vein; A09 Infectious gastroenteritis and colitis, unspecified; I74.8 Embolism and thrombosis of other arteries; D61.818 Other pancytopenia; E87.1 Hypo-osmolality and hyponatremia; J90 Pleural effusion, not elsewhere classified; C91.10 Chronic lymphocytic leukemia of B-cell type not having achieved remission; D68.8 Other specified coagulation defects; M48.54XA Collapsed vertebra, not elsewhere classified, thoracic region, initial encounter for fracture; E83.42 Hypomagnesemia; J32.0 Chronic maxillary sinusitis; Z92.21 Personal history of antineoplastic chemotherapy; I10 Essential (primary) hypertension; G43.909 Migraine, unspecified, not intractable, without status migrainosus; Z88.6 Allergy status to analgesic agent; Z79.899 Other long term (current) drug therapy; Z87.891 Personal history of nicotine dependence; D69.6 Thrombocytopenia, unspecified; N32.81 Overactive bladder; G62.9 Polyneuropathy, unspecified; F10.10 Alcohol abuse, uncomplicated

== ENCOUNTER → 2023-08-14 | Outpatient (CLI) | payer OTHER ==
[~2023-08-14] MED LIST changes: +AMOX875T2 PO; +BENZ-18 PO; +DULO20CA27 PO; +EQL0.65S NARES; +FERR325T18 PO; +FLON1SPR NARES; +FURO20TA2 PO; +GABA-282 PO; +LIDO1PAD TOP; +ONDA-84 PO; +OXYC7.5T3 PO; +POTA-150 PO; +RIZA10TA66 PO; +SIMV10TA21 PO; +TOLT4CAP3 PO; +VITA100093 PO; +XARE1TAB PO
== END ==
LOC: M PLAIMG 10:26
PROVIDERS: ATTEND Student in an Organized Health Care Education/Training Program
DX: M54.9 Dorsalgia, unspecified (principal); M51.37 Other intervertebral disc degeneration, lumbosacral region; M51.34 Other intervertebral disc degeneration, thoracic region

== ENCOUNTER → 2023-08-28 | Outpatient (CLI) | payer OTHER | LOC: M WHC 08:22 | PROVIDERS: ATTEND Student in an Organized Health Care Education/Training Program | DX: Z13.820 Encounter for screening for osteoporosis (principal); S22.000A Wedge compression fracture of unspecified thoracic vertebra, initial encounter for closed fracture; M81.0 Age-related osteoporosis without current pathological fracture; X58.XXXA Exposure to other specified factors, initial encounter; Y92.9 Unspecified place or not applicable; M85.851 Other specified disorders of bone density and structure, right thigh; M85.852 Other specified disorders of bone density and structure, left thigh; M85.88 Other specified disorders of bone density and structure, other site ==

== ENCOUNTER 2023-10-11 13:18 | Emergency (ER) | payer OTHER ==
[~2023-10-11 13:18] MED LIST changes: +ONDA-282 PO; -ONDA4TAB6 PO
[2023-10-11] MEDS ORDERED: SODIUM BICARBONATE 8.4% INJ 50ML SYRINGE ONE (13:19)
[2023-10-11] MEDS ORDERED: SUCCINYLCHOLINE 100MG/5ML SYRINGE ONE (13:19)
[2023-10-11] MEDS ORDERED: ETOMIDATE INJ 20MG/10ML VIAL ONE (13:19)
[2023-10-11] MEDS ORDERED: EPINEPHrine 1MG/10ML SYRINGE 1.5IN ONE (13:19)
[2023-10-11] MEDS ORDERED: EPINEPHrine 1MG/10ML SYRINGE 1.5IN As Ordered ONE (13:52)
[2023-10-11] MEDS ORDERED: MIDAZOLAM 100MG/100ML-0.9%NACL 100 MG in IV 1 EA IV SCH (14:05)
[2023-10-11] MEDS: NOREPINEPHRINE 4MG IN D5 250ML 4 MG in IV 1 EA IV SCH (14:07)
[2023-10-11] MEDS ORDERED: FACTOR XA,INACTIVATED-ZHZO 400 MG in APPROPRIATE DILUENT 40 ML IV ONE (14:15)
[2023-10-11] MEDS ORDERED: FACTOR XA,INACTIVATED-ZHZO 480 MG in APPROPRIATE DILUENT 48 ML IV ONE (14:15)
[2023-10-11 14:22] VITALS: TEMP 97.2
[2023-10-11] MEDS ORDERED: DILUENT IV ONE ×2 (14:25)
[2023-10-11] MEDS ORDERED: PANTOPRAZOLE 40MG VIAL IV ONE (14:25)
[2023-10-11] MEDS ORDERED: [UNRECOGNIZED DRUG - OTHER] IV ONE (14:25)
[2023-10-11] MEDS ORDERED: [UNRECOGNIZED DRUG - OTHER] IV ONE (14:25)
[2023-10-11 14:36] LABS: VENOUS BASE EXCESS -20.6 (-2.0-2.0); VENOUS HCO3 11.8 MMOL/L (23.0-27.0); VENOUS O2 SATURATION 70.6 % (60.0-80.0); VENOUS PARTIAL PRESSURE CO2 73.5 mmHg (38.0-50.0); VENOUS PH 6.824 UNITS (7.330-7.430); VENOUS STANDARD HCO3 8.2 MMOL/L; VENOUS TOTAL CO2 14.1 MMOL/L (24.0-28.0)
[2023-10-11 14:44] LABS: LYMPH # 0.3 10^3/uL (1.5-5.0); LYMPH % 34.1 % (24.0-44.0); MEAN CORPUSCULAR HEMOGLOBIN 34.6 pg (27.0-33.0); MEAN CORPUSCULAR HGB CONC 28.8 g/dl (32.0-36.5); MONO % 4.5 % (2.0-8.0); NEUTROPHILS % 26.2 % (36.0-66.0)
[2023-10-11 14:45] LABS: ABG BASE EXCESS -19.8 (-2.0-2.0); ABG HCO3 9.8 MMOL/L (22.0-26.0); ABG O2 SATURATION 84.3 % (95.0-99.0); ABG PARTIAL PRESSURE CO2 41.9 mmHg (35.0-45.0); ABG PARTIAL PRESSURE O2 79.5 mmHg (75.0-100.0); ABG STANDARD HCO3 8.9 MMOL/L. (22.0-26.0); ABG TOTAL CO2 11.1 MMOL/L (22.0-29.0); ABG pH (ARTERIAL) 6.989 UNITS (7.350-7.450)
[2023-10-11 14:46] LABS: MEAN CORPUSCULAR VOLUME 120.1 fl (80.0-96.0); NEUTROPHILS # 0.2 10^3/uL (1.5-8.5)
[2023-10-11 14:47] LABS: RED BLOOD COUNT 1.59 10^6/uL (4.00-5.40); WHITE BLOOD COUNT 0.9 10^3/uL (4.0-10.0)
[2023-10-11 14:48] LABS: HEMATOCRIT 19.1 % (36.0-47.0); HEMOGLOBIN 5.5 g/dl (12.0-15.5)
[2023-10-11 15:04] LABS: PARTIAL THROMBOPLASTIN TIME 91.4 SECONDS (24.8-34.2)
[2023-10-11 15:22] LABS: CK-MB VALUE MASS 9.6 NG/ML (<3.6); LIPASE 11 U/L (12-53)
[2023-10-11 15:28] LABS: ALBUMIN 0.5 G/DL (3.2-5.2); ALKALINE PHOSPHATASE 114 U/L (46-116); ALT/SGPT 33 U/L (7.0-40); AST/SGOT 103 U/L (<34); BILIRUBIN,DIRECT 0.2 MG/DL (<0.4); BILIRUBIN,TOTAL 0.2 MG/DL (0.3-1.2); BLOOD UREA NITROGEN 35 MG/DL (9-23); CALCIUM LEVEL 6.4 MG/DL (8.5-10.1); CARBON DIOXIDE LEVEL 14 MMOL/L (20-31); CHLORIDE LEVEL 108 MMOL/L (98-107); CPK CREATINE PHOSPHOKINASE 376 U/L (34-145); CREATININE FOR GFR 2.04 MG/DL (0.55-1.30); GLOMERULAR FILTRATION RATE 26.8 (>51); GLUCOSE, FASTING 16 MG/DL (60-100); MB/CK RELATIVE INDEX 2.55 (< OR =4); POTASSIUM SERUM 4.5 MMOL/L (3.5-5.1); SODIUM LEVEL 140 MMOL/L (136-145); TOTAL PROTEIN < 2.0 G/DL (5.7-8.2)
[2023-10-11 15:29] LABS: PROTHROMBIN TIME 108.1 SECONDS (12.5-14.5)
[2023-10-11 15:30] LABS: INR 15.85
[2023-10-11 15:37] LABS: HYPOCHROMASIA 2+; PLATELET ESTIMATE DECREASED (NORMAL)
[2023-10-11 15:43] VITALS: BP 0/0; O2SAT 0
[2023-10-11 15:52] LABS: PLATELET COUNT, AUTOMATED 35 10^3/uL (150-450)
== END 2023-10-11 18:26 | disposition expired ==
LOC: M ED 13:18
DX: I46.9 Cardiac arrest, cause unspecified (principal); Z88.6 Allergy status to analgesic agent; Z79.810 Long term (current) use of selective estrogen receptor modulators (SERMs); Z79.899 Other long term (current) drug therapy
CPT/HCPCS: 31500; 36600; 71045; 80048; 80076; 82550; 82553; 82803; 83605; 83690; 84484; 85025; 85049; 85055; 85610; 85730; 86850; 86900; 86901; 86920; 87040; 87077; 87186; 93041; 94760; 96365; 96366; 99291; 99292; J0171; J0330; P9016